=== PATIENT | male | born 1980 | race Two or more races ===

== ENCOUNTER 2024-06-24 01:57 | Emergency (ER) | payer OTHER ==
[2024-06-24 02:10] VITALS: BP 126/83; PULSE 80; RESP 18; TEMP 97.5; BMI 28.5
[2024-06-24 02:52] LABS: INR 0.99 (0.83-1.09); PROTHROMBIN TIME (PATIENT) 11.4 SEC (9.7-13.0)
[2024-06-24] MEDS: OXYMETAZOLINE 0.05% NASAL SOLUTION 15 ML BOTTLE NS ONE (02:52)
[2024-06-24 02:53] LABS: BASO % 0.5 % (0-2.0); EOS % 1.4 % (0-4.5); HEMOGLOBIN 13.8 GM/dL (11.7-16.9); LYMPH % 33.1 % (8-40); MCH 30.1 pg (25.7-33.7); MCHC 33.8 g/dl (32.0-35.9); MEAN CELL VOLUME 89.1 fl (80-96); MEAN PLT VOLUME 7.4 fl (7.5-11.1); MONO % 7.6 % (3.8-10.2); NEUT % 57.4 % (42.8-82.8); PLATELET COUNT 295 10^3/uL (134-434); RDW 13.3 % (11.9-15.9); WHITE BLOOD COUNT 8.6 K/mm3 (4.0-10.0)
[2024-06-24 02:55] LABS: ACTIVATED PTT 38.9 SECONDS (25.2-36.5)
[2024-06-24 02:59] LABS: POTASSIUM 3.9 mmol/L (3.5-5.1)
[2024-06-24 03:01] LABS: ALBUMIN 4.1 g/dl (3.4-5.0)
[2024-06-24 03:02] LABS: MAGNESIUM 1.9 mg/dL (1.8-2.4)
[2024-06-24 03:05] LABS: CREATININE 1.1 mg/dL (0.55-1.3)
[2024-06-24 03:06] LABS: BILIRUBIN,TOTAL 0.4 mg/dL (0.2-1)
[2024-06-24 03:16] LABS: CALCIUM 8.6 mg/dL (8.5-10.1)
== END 2024-06-24 04:19 | disposition home or self-care (01) ==
LOC: JER 01:57
DX: R04.0 Epistaxis (principal)
CPT/HCPCS: 36415; 80053; 83735; 85025; 85610; 85730; 86850; 86900; 86901; 99283-25

== ENCOUNTER 2024-06-24 21:11 | Emergency (ER) | payer OTHER ==
[2024-06-24 21:37] VITALS: BP 114/76; PULSE 67; RESP 18; TEMP 98.6; BMI 28.3
== END 2024-06-24 21:58 | disposition home or self-care (01) ==
LOC: JER 21:11
DX: R04.0 Epistaxis (principal)
CPT/HCPCS: 99283-25